=== PATIENT | male | born 2000 | race American Indian/Alaskan Native ===

== ENCOUNTER 2021-02-08 19:35 | Emergency (ER) | payer SELFPAY ==
--- NOTE | 2021-02-08 20:15 | Emergency Department Report ---
Chief Complaint: Back Pain/Injury Stated Complaint: BACK/FULL BODY PAIN/IRRITATION Time Seen by Provider: 02/08/21 20:12 - HPI History of Present Illness: 20 yo AA male here in ER for 1. a/c back pain; seen at recently and urine and blood work is all normal They told him to see back doctor for MRI Pt did not see one 2. STD testing no symptoms. Pt has not had covid immunizations - ROS Review of Systems: a/c back pain no trauma recent normal work up at [facility] - Exam Vital Signs: Vital Signs 02/08/21 20:04 Temperature 99.0 F Pulse Rate 79 Respiratory 18 Rate Blood Pressure 146/85 O2 Sat by Pulse 100 Oximetry Physical Exam: no neuro def no s/s cauda equina ambulatory non ill appearing young male coming to ER from work no penile dc no fever or chills MSE screening note: Focused history and physical exam performed. Due to findings the following was ordered: no life threat. Here for chronic back pain and STI routine testing Referred to PCP for evaluation. Pt verbalizes understanding of plan of care. Patient discussed with doctor:: PERICO CARLTON ED Disposition for MSE Clinical Impression: Back pain Disposition: Z-07 MED SCREENING EXAM-LEFT Is pt being admited?: No Does the pt Need Aspirin: No Condition: Stable Instructions: Chronic Back Pain, [id number] Additional Instructions: warm compresses motrin over the counter 800 mg with food every 8 hour follow up with PCP in AM for your back and STD concerns Referrals: SHAUN NELSON MD [Staff Physician] - 3-5 Days Time of Disposition: 20:13
== END 2021-02-08 20:15 | disposition left against medical advice (07) ==
LOC: ED 19:35

== ENCOUNTER 2021-06-28 15:23 | Emergency (ER) | payer SELFPAY ==
[2021-06-28 15:32] VITALS: BP 154/87
[2021-06-28] MEDS ORDERED: LIDOCAINE VISCOUS 2% 15 ML ORAL LIQD PO ONE (17:09)
[2021-06-28] MEDS ORDERED: ALUM-MAG HYDROXIDE-SIMETHICONE 200-200-20MG/5ML ORAL LIQD 30 ML PO ONE (17:09)
[2021-06-28] MEDS ORDERED: FAMOTIDINE 20 MG/2 ML INJ IV ONE (17:09)
--- NOTE | 2021-06-28 17:10 | Emergency Department Report ---
ED General Adult HPI - General Chief complaint: Sore Throat Stated complaint: SEVERE THROAT,CHEST PAIN,JOSE Time Seen by Provider: 06/28/21 16:13 Source: patient Mode of arrival: Ambulatory Limitations: No Limitations - History of Present Illness Initial comments: 21-year-old -[place] male patient presents with complaints of sore throat, chest pain, and upper abdominal pain for the past week. He also states some shortness of breath without cough or hemoptysis. Patient states his throat pain is mild and is improving every day, however his abdominal pain and chest pain are worsening. He states the chest pain occurs with deep inhalation and with eating/swallowing. He denies any fever/chills/sweats, loss of taste or smell, vomiting, diarrhea/constipation. Patient states he had a dental surgical procedure with anesthesia performed for weeks ago. No history of DVT/PE/cancer per patient. He denies any past medical history. Patient rates his current pain as a 9/10 in severity - Related Data Home Medications Medication Instructions Recorded Confirmed Last Taken Albuterol Sulfate [Albuterol 0.63%] 0.63 mg IH TID PRN 09/04/14 09/04/14 Unknown Previous Rx's Medication Instructions Recorded Last Taken Type Acetaminophen/Codeine 1 tab PO Q6H PRN #14 tab 09/04/14 Unknown Rx [Acetaminophen-Codeine #3 TAB] Ibuprofen [Motrin] 800 mg PO Q8H PRN #14 tablet 09/04/14 Unknown Rx Omeprazole 20 mg PO QAM #14 capsule. 06/28/21 Unknown Rx Sucralfate [Carafate] 1 gm PO QID 10 Days #40 tablet 06/28/21 Unknown Rx Allergies Allergy/AdvReac Type Severity Reaction Status Date / Time No Known Allergies Allergy Verified 06/28/21 15:28 ED Review of Systems ROS: Stated complaint: SEVERE THROAT,CHEST PAIN,JOSE Other details as noted in HPI Constitutional: denies: chills, fever, malaise ENT: throat pain Respiratory: shortness of breath Cardiovascular: chest pain Gastrointestinal: abdominal pain. denies: nausea, vomiting, diarrhea, constipation Genitourinary: denies: urgency, dysuria, frequency Skin: denies: rash, change in color Neurological: denies: headache ED Past Medical Hx - Past Medical History Hx Asthma: Yes - Surgical History Additional Surgical History: WISDOM TEETH - Social History Smoking Status: Never Smoker Substance Use Type: None - Medications Home Medications: Home Medications Medication Instructions Recorded Confirmed Last Taken Type Acetaminophen/Codeine 1 tab PO Q6H PRN #14 tab 09/04/14 Unknown Rx [Acetaminophen-Codeine #3 TAB] Albuterol Sulfate [Albuterol 0.63%] 0.63 mg IH TID PRN 09/04/14 09/04/14 Unknown History Ibuprofen [Motrin] 800 mg PO Q8H PRN #14 tablet 09/04/14 Unknown Rx Omeprazole 20 mg PO QAM #14 capsule. 06/28/21 Unknown Rx Sucralfate [Carafate] 1 gm PO QID 10 Days #40 tablet 06/28/21 Unknown Rx ED Physical Exam - General Limitations: No Limitations General appearance: alert, in no apparent distress - Head Head exam: Present: atraumatic, normocephalic - Eye Eye exam: Present: normal appearance. Absent: scleral icterus - ENT ENT exam: Present: normal exam, normal orophraynx - Expanded ENT Exam Expanded Mouth exam: Present: tongue normal. Absent: drooling, trismus, muffled voice Throat exam: Negative: tonsillar erythema, tonsillomegaly, tonsillar exudate - Neck Neck exam: Present: normal inspection, full ROM. Absent: lymphadenopathy - Respiratory Respiratory exam: Present: normal lung sounds bilaterally. Absent: respiratory distress, chest wall tenderness - Cardiovascular Cardiovascular Exam: Present: regular rate, normal rhythm. Absent: systolic murmur, diastolic murmur, rubs, gallop - GI/Abdominal GI/Abdominal exam: Present: soft, normal bowel sounds. Absent: distended, tenderness, guarding, rebound, rigid - Back Exam Back exam: Present: full ROM - Neurological Exam Neurological exam: Present: alert, oriented X3 - Psychiatric Psychiatric exam: Present: normal affect, normal mood - Skin Skin exam: Present: warm, dry, intact, normal color. Absent: rash ED Course Vital Signs 06/28/21 15:31 Temperature 98.2 F Pulse Rate 89 Respiratory 18 Rate Blood Pressure 154/87 O2 Sat by Pulse 99 Oximetry ED Medical Decision Making - Lab Data Result diagrams: 06/28/21 17:35 06/28/21 17:35 Lab Results 06/28/21 06/28/21 06/28/21 Range/Units 17:35 17:35 17:35 WBC 13.3 H (4.5-11.0) K/mm3 RBC 4.87 (3.65-5.03) M/mm3 Hgb 14.4 (11.8-15.2) gm/dl Hct 43.9 (35.5-45.6) % MCV 90 (84-94) fl MCH 30 (28-32) pg MCHC 33 (32-34) % RDW 13.3 (13.2-15.2) % Plt Count 243 (140-440) K/mm3 Lymph % (Auto) 17.3 (13.4-35.0) % Ray % (Auto) 5.8 (0.0-7.3) % Eos % (Auto) 0.9 (0.0-4.3) % Baso % (Auto) 0.3 (0.0-1.8) % Lymph # (Auto) 2.3 (1.2-5.4) K/mm3 Ray # (Auto) 0.8 (0.0-0.8) K/mm3 Eos # (Auto) 0.1 (0.0-0.4) K/mm3 Baso # (Auto) 0.0 (0.0-0.1) K/mm3 Seg Neutrophils % 75.7 H (40.0-70.0) % Seg Neutrophils # 10.0 H (1.8-7.7) K/mm3 D-Dimer 135.00 (0-234) ng/mlDDU Sodium 144 (137-145) mmol/L Potassium 3.7 (3.6-5.0) mmol/L Chloride 104.7 (98-107) mmol/L Carbon Dioxide 24 (22-30) mmol/L Anion Gap 19 mmol/L BUN 12 (9-20) mg/dL Creatinine 1.0 (0.8-1.3) mg/dL Estimated GFR > 60 ml/min BUN/Creatinine Ratio 12 % Glucose 89 (75-100) mg/dL Calcium 9.5 (8.4-10.2) mg/dL Total Bilirubin 0.60 (0.1-1.2) mg/dL AST 23 (5-40) units/L ALT 36 (7-56) units/L Alkaline Phosphatase 84 (35-129) units/L Troponin T < 0.010 (0.00-0.029) ng/mL Total Protein 7.6 (6.3-8.2) g/dL Albumin 4.6 (3.9-5) g/dL Albumin/Globulin Ratio 1.5 % Lipase 20 (13-60) units/L - EKG Data EKG shows normal: sinus rhythm Rate: normal - EKG Data Interpretation: normal EKG - Radiology Data Radiology results: report reviewed CHEST 2 VIEWS INDICATION / CLINICAL INFORMATION: chest pain. COMPARISON: None available. FINDINGS: SUPPORT DEVICES: None. HEART / MEDIASTINUM: No significant abnormality. LUNGS / PLEURA: No significant pulmonary or pleural abnormality. No pneumothorax. ADDITIONAL FINDINGS: No significant additional findings. IMPRESSION: 1. No acute findings. - Medical Decision Making 21-year-old -[place] male patient presents with complaints of sore throat, chest pain, and upper abdominal pain for the past week. He also states some shortness of breath without cough or hemoptysis. Patient states his throat pain is mild and is improving every day, however his abdominal pain and chest pain are worsening. He states the chest pain occurs with deep inhalation and with eating/swallowing. He denies any fever/chills/sweats, loss of taste or smell, vomiting, diarrhea/constipation. Patient states he had a dental surgical procedure with anesthesia performed for weeks ago. No history of DVT/PE/cancer per patient. He denies any past medical history. Patient rates his current pain as a 9/10 in severity Labs are within normal limits. Dimer is negative. Chest x-ray and EKG are normal. Patient given Pepcid, Maalox, and viscous lidocaine. He states his pain has significantly decreased with swallowing and denies any further pain with inspiration. Throat is clear on exam. Symptoms seem to be due to esophagitis/gastritis. Recommend follow-up with GI within 3 to 5 days. Referral provided. Patient is well-appearing, his vitals within normal limits, he is stable for discharge home. Discussed presumptive diagnosis, care plan, and signs and symptoms that should prompt immediate return to the emergency department in detail with patient verbalizes understanding. Critical care attestation.: If time is entered above; I have spent that time in minutes in the direct care of this critically ill patient, excluding procedure time. ED Disposition Clinical Impression: Dysphagia Disposition: 01 HOME / SELF CARE / HOMELESS Is pt being admited?: No Condition: Stable Instructions: Dysphagia, Gastroesophageal Reflux Disease, Adult Prescriptions: Sucralfate [Carafate] 1 gm PO QID 10 Days #40 tablet Omeprazole 20 mg PO QAM #14 capsule. Referrals: [facility] [Provider Group] - 3-5 Days Forms: Work/School Release Form(ED)
--- NOTE | 2021-06-28 17:33 | XRay Report ---
CHEST 2 VIEWS INDICATION / CLINICAL INFORMATION: chest pain. COMPARISON: None available. FINDINGS: SUPPORT DEVICES: None. HEART / MEDIASTINUM: No significant abnormality. LUNGS / PLEURA: No significant pulmonary or pleural abnormality. No pneumothorax. ADDITIONAL FINDINGS: No significant additional findings. IMPRESSION: 1. No acute findings. Signer Name: Leandro Dover MD Signed: 06/28/2021 5:29 PM Workstation Name: [id number]
[2021-06-28 18:04] LABS: Basophils % (Auto) 0.3 % (0.0-1.8); Eosinophils # (Auto) 0.1 K/mm3 (0.0-0.4); Eosinophils % (Auto) 0.9 % (0.0-4.3); Hematocrit 43.9 % (35.5-45.6); Hemoglobin 14.4 gm/dl (11.8-15.2); Lymphocytes # (Auto) 2.3 K/mm3 (1.2-5.4); Lymphocytes % (Auto) 17.3 % (13.4-35.0); Mean Corpuscular HGB Conc 33 % (32-34); Mean Corpuscular Volume 90 fl (84-94); Monocytes # (Auto) 0.8 K/mm3 (0.0-0.8); Monocytes % (Auto) 5.8 % (0.0-7.3); Platelet Count 243 K/mm3 (140-440); Red Blood Count 4.87 M/mm3 (3.65-5.03); Red Cell Distribution Width 13.3 % (13.2-15.2)
[2021-06-28 18:26] LABS: Alanine Aminotransferase 36 units/L (7-56); Albumin 4.6 g/dL (3.9-5); BUN/Creatinine Ratio 12; Blood Urea Nitrogen 12 mg/dL (9-20); Calcium 9.5 mg/dL (8.4-10.2); Hemolysis Index 22
--- NOTE | 2021-06-29 13:06 | Electrocardiograph Report ---
[facility] Test Date: 2021-06-28 Test Time: 19:40:38 Pat Name: JAE GRIFFITH Department: Room: Gender: M Vp Client Services: [id number] Requested By: DUTCH PRAJAPATI Order Number: [id number] Reading MD: Mitchell Ngo Measurements Intervals [place] Rate: 74 P: -13 CO: 173 QRS: 75 QRSD: 98 T: 40 QT: 388 QTc: 431 Interpretive Statements Sinus rhythm Nonspecific T wave abnormality No previous ECG available for comparison Electronically Signed On 06-29-2021 13:05:42 EST by Mitchell Ngo
== END 2021-06-28 20:42 | disposition home or self-care (01) ==
LOC: ED 15:23
DX: R13.10 Dysphagia, unspecified (principal); J45.909 Unspecified asthma, uncomplicated; J02.9 Acute pharyngitis, unspecified; R10.10 Upper abdominal pain, unspecified
CPT/HCPCS: 36415; 71046; 80053; 83690; 84484; 85025; 85379; 93005; 96374; 99284